=== PATIENT | male | born 1945 | race Caucasian/White ===

== ENCOUNTER 2018-12-02 15:49 | Inpatient (IN) ==
[2018-12-02] MEDS ORDERED: NS 1,000 ML IV ONE (16:03)
--- NOTE | 2018-12-02 16:30 | Diag Imaging Result Doc PS360 ---
EXAM: CT HEAD W/O CONTRAST 12/02/2018 HISTORY: confusion TECHNIQUE: This exam was performed using automated exposure control, adjustment of mA or kV according to patient size, and/or use of iterative reconstruction technique. COMMENT: There is no evidence of mass effect, bleed, or abnormal extra-axial fluid collection. There are calcifications in the internal carotid and vertebral arteries bilaterally. There are no previous studies available for comparison. The calvarium is intact. The paranasal sinuses are clear as seen. IMPRESSION: No evidence of acute intracranial disease. Electronically signed by Chris Leon 12/02/2018 4:28 PM
--- NOTE | 2018-12-02 16:41 | Diag Imaging Result Doc PS360 ---
EXAM: HUMERUS-LEFT 12/02/2018 HISTORY: left arm pain TECHNIQUE: Left humerus two views COMMENT: There is a comminuted fracture of the neck of the humerus. There is no evidence of dislocation. IMPRESSION: Fracture proximal humerus. Electronically signed by Chris Leon 12/02/2018 4:39 PM
[2018-12-02] MEDS ORDERED: SODIUM CHLORIDE 0.9% INJ PRN (17:37)
[2018-12-02] MEDS ORDERED: PHENERGAN IV PRN (17:37)
[2018-12-02] MEDS ORDERED: TYLENOL PO PRN (17:37)
[2018-12-02 17:57] LABS: MCH 35.5 PG (27-31); MCHC 33.3 g/dL (33-37); MCV 106.4 FL (81-99); MPV 10.6 FL (7.4-10.4); RBC 2.82 XMIL (4.7-6.1); RDW 14.5 % (11.5-14.5); WBC 7.98 X1000 (4.8-10.8)
[2018-12-02 18:10] LABS: AGAP 17; ALB/GLOB RATIO 1.5; ALBUMIN 3.9 g/dL (3.5-5.0); ALKALINE PHOSPHATASE 64 U/L (32-122); BUN 15 mg/dL (8-22); CALCIUM 9.2 mg/dL (8.8-10.2); CHLORIDE 103 mmol/L (98-107); CK TOTAL 580 U/L (24-204); COSMO 292; CREATININE 0.6 mg/dL (0.7-1.2); ESTIMATED GFR > 60; GLUCOSE 118 mg/dL (70-104); GOT 24 U/L (10-34); GPT 14 U/L (10-44); POTASSIUM 3.2 mmol/L (3.5-5.1); SODIUM 146 mmol/L (136-145); TCO2 26 mmol/L (25-35); TOTAL BILIRUBIN 1.18 mg/dL (0.20-1.00); TOTAL PROTEIN 6.5 g/dL (6.3-8.3)
[2018-12-02] MEDS: DESYREL PO PRN (20:23)
[2018-12-02] MEDS: LOVENOX SUBQ SCH (20:23)
[2018-12-02] MEDS: PRAVACHOL PO SCH (20:23)
[2018-12-02] MEDS: SODIUM BICARBONATE 8.4% 100 MEQ in D5W 1,000 ML IV SCH (20:23)
[2018-12-02] MEDS: DILAUDID IV PRN (20:29)
[2018-12-03] MEDS: DILAUDID IV PRN ×2 (04:51→19:03)
[2018-12-03 07:01] LABS: AGAP 10; BUN 15 mg/dL (8-22); CALCIUM 8.2 mg/dL (8.8-10.2); CHLORIDE 101 mmol/L (98-107); CK TOTAL 255 U/L (24-204); COSMO 289; CREATININE 0.6 mg/dL (0.7-1.2); ESTIMATED GFR > 60; GLUCOSE 162 mg/dL (70-104); POTASSIUM 2.7 mmol/L (3.5-5.1); SODIUM 143 mmol/L (136-145); TCO2 32 mmol/L (25-35)
--- NOTE | 2018-12-03 07:10 | PROGRESS NOTE ---
DATE: 12/03/2018 SUBJECTIVE: Mr. Piedra unfortunately fell and injured his left upper extremity, and presented to the emergency department. He was admitted per Dr. Martinez with presumed altered mental status, and it was noted that he had this left proximal humerus fracture as well. Most of his pain is in that left arm. I have operated on Mr. Piedra in the past for a hip fracture and for elbow fracture, and he has done fairly well from those. OBJECTIVE: Left upper extremity exam: He has tenderness to palpation of the shoulder. He is neurovascularly intact to the left upper extremity. He has good sensation to light touch to his fingers, and all of his hand intrinsics are intact. He has some swelling to the arm. RADIOGRAPHS: Several views of the left shoulder show a 3-part proximal humerus fracture with a little bit of displacement. ASSESSMENT: Left 3-part proximal humerus fracture. PLAN: I discussed with Mr. Piedra about his proximal humerus fracture. Overall, alignment still looks good, so we are going to try to let this heal in on its own. He is going to be really nonweightbearing to the left upper extremity. Once he is out of the hospital, I can follow him in clinic. cc: MD Mallory Ocampo MD
[2018-12-03] MEDS: SODIUM BICARBONATE 8.4% 100 MEQ in D5W 1,000 ML IV SCH ×2 (09:16→10:50)
[2018-12-03] MEDS: PLAVIX PO SCH (09:17)
[2018-12-03] MEDS: KLOR-CON PO SCH ×2 (09:19→21:42)
--- NOTE | 2018-12-03 10:22 | Diag Imaging Result Doc PS360 ---
EXAM: CHEST-PORTABLE HISTORY: COPD TECHNIQUE: Portable chest single view COMPARISON: 04/17/2018 FINDINGS: The lungs are well expanded except for atelectasis in the left base. The heart is not enlarged. The vessels are small there are no infiltrates. No effusion identified. IMPRESSION: Emphysema Electronically signed by Pawan Davies 12/03/2018 10:20 AM
[2018-12-03] MEDS: LOVENOX SUBQ SCH (16:48)
--- NOTE | 2018-12-03 17:16 | PROGRESS NOTE ---
DATE: 12/03/2018 SUBJECTIVE: Mr. Piedra was admitted to [facility] for evaluation of confusion and disorientation. He does have early mild cognitive impairment. CT scan of the brain demonstrated chronic white matter changes. There have been no signs of infection to this point in time. He had a normal white count. Urinalysis was clear. His chest x-ray was clear. We rehydrated him with normal saline over night and he is CPK has improved greatly with alkalinization of the urine. Pain is well controlled with IV Dilaudid. OBJECTIVE: Vital signs: He is afebrile. Vital signs are stable. CV: Regular rate and rhythm. Lungs: Clear. Abdomen: Soft, nontender, with active bowel sounds. Neurologic: He is much more awake and interactive today. He is oriented to name and place. He still has bouts of confusion. ASSESSMENT AND PLAN: 1. Metabolic encephalopathy. He does have underlying mild cognitive impairment and stopped taking Aricept. There does not appear to be any obvious electrolyte abnormalities such as hyponatremia or evidence of infection. When he was found at home he had soiled his pants and was confused and discombobulated. I am going to arrange for an EEG to screen for subclinical seizures. 2. Hypokalemia. I will give him KCl 40 mEq p.o. b.i.d. and recheck a BMP in the morning. 3. Rhabdomyolysis. I will continue to alkalinize the urine and recheck CK in the morning. 4. Proximal left humeral fracture. Dr. Knight has seen him in consultation. He is not felt to be a surgical candidate. We will treat him conservatively. He has had frequent falls and has had difficulty moving around the house. Potentially he would benefit from rehab. We will consult transition social worker to arrange for a referral to rehab at [facility] as well as an occupational therapy consult. cc: Mallory Mratinez MD
[2018-12-03] MEDS: PRAVACHOL PO SCH (21:42)
[2018-12-03] MEDS: DESYREL PO PRN (21:42)
[2018-12-04] MEDS: DILAUDID IV PRN (04:15)
[2018-12-04 06:46] LABS: AGAP 9; BUN 13 mg/dL (8-22); CALCIUM 7.8 mg/dL (8.8-10.2); CHLORIDE 101 mmol/L (98-107); CK TOTAL 99 U/L (24-204); COSMO 286; CREATININE 0.6 mg/dL (0.7-1.2); ESTIMATED GFR > 60; GLUCOSE 112 mg/dL (70-104); POTASSIUM 2.6 mmol/L (3.5-5.1); SODIUM 143 mmol/L (136-145); TCO2 33 mmol/L (25-35)
[2018-12-04] MEDS: SODIUM BICARBONATE 8.4% 100 MEQ in D5W 1,000 ML IV SCH ×2 (09:08→18:40)
--- NOTE | 2018-12-04 09:13 | EEG REPORT ---
DATE: 12/03/2018 REFERRING PHYSICIAN: Mallory Martinez MD HYDROCRANE OPERATOR: Selma Vivar. BACKGROUND INFORMATION AND TECHNIQUE: This is a digitally recorded routine EEG with video HISTORY: 73-year-old male patient admitted with a fall and altered mental status. He was confused on the scene. EEG is ordered to detect evidence of seizures. MEDICATIONS: Include p.r.n. Dilaudid and Desyrel. EEG FINDINGS: This is a technically limited routine EEG due to diffuse myogenic artifact necessitating heavy filtering. A posteriorly dominant alpha rhythm is not seen. The background at maximal alertness consists of theta range slowing with intermixed faster frequencies. No definite persistent focal slowing. No epileptiform discharges. No seizures. Hyperventilation is not performed. Photic stimulation does not alter the record. The patient becomes drowsy briefly, but stage II sleep is not seen. EKG demonstrates mostly regular intervals with possible PVCs. IMPRESSION AND CLINICAL CORRELATION: Abnormal, technically limited, routine EEG due to mild generalized slowing suggestive of a mild nonspecific encephalopathy. No epileptiform discharges or seizures seen on the current study. This does not rule out an underlying seizure disorder. Clinical correlation is recommended. cc: MD Mallory Hector MD [facility]
[2018-12-04] MEDS: KLOR-CON PO SCH ×2 (09:14→20:45)
[2018-12-04] MEDS: PLAVIX PO SCH (09:14)
[2018-12-04] MEDS: MAGNESIUM SULFATE 2 GM/S.W.I. 2 GM/50 ML IVPB IV ONE ×4 (16:10→16:39)
[2018-12-04] MEDS: LOVENOX SUBQ SCH (16:41)
--- NOTE | 2018-12-04 17:40 | PROGRESS NOTE ---
DATE: 12/04/2018 SUBJECTIVE: Mr. Piedra was admitted to [facility] with a metabolic encephalopathy. He seems much more alert and interactive. He is awake and easily arousable. He is oriented to name and place. He still believes that it is 1919. He answers questions appropriately and carries on an appropriate conversation. Chest x-ray, urine culture, blood work demonstrate no significant abnormalities other than a low magnesium and serum potassium. EEG demonstrated gross slowing. A CT scan of the brain demonstrated no acute stroke and chronic white matter changes. OBJECTIVE: Vital signs: Temperature 98.1 degrees, pulse 92, BP 128/63, respiratory rate 18. CV: Regular rate and rhythm. Lungs: Clear. Abdomen: Soft, nontender, with active bowel sounds. ASSESSMENT AND PLAN: 1. Proximal humeral fracture. He has seen Dr. Knight in consultation. We will continue him in a shoulder immobilizer at this point. The break is not displaced and is felt it will heal over time. 2. Metabolic encephalopathy. The etiology is unclear. He has not had any evidence of seizures on the EEG. There is no evidence of infection. His initial CT scan of the brain was unremarkable. He did have some rhabdomyolysis and he has been on D5W with bicarb. I will recheck a CPK in the morning. I will most likely arrange for an MRI of the brain just to make sure that there was no stroke. 3. Hypomagnesemia. I will give magnesium oxide 2 g IV over 4 hours. 4. Hypokalemia. I will give KCl 40 mEq IV over 4 hours. 5. General debility. We have placed in a consult to [facility] to see if he would benefit from short-term rehab. cc: Mallory Martinez MD
[2018-12-04] MEDS: PRAVACHOL PO SCH (20:45)
[2018-12-05] MEDS: DILAUDID IV PRN ×3 (00:25→22:03)
[2018-12-05 07:51] LABS: AGAP 6; BUN 10 mg/dL (8-22); CALCIUM 7.9 mg/dL (8.8-10.2); CHLORIDE 101 mmol/L (98-107); COSMO 279; CREATININE 0.5 mg/dL (0.7-1.2); ESTIMATED GFR > 60; GLUCOSE 100 mg/dL (70-104); SODIUM 140 mmol/L (136-145); TCO2 33 mmol/L (25-35)
[2018-12-05] MEDS: PLAVIX PO SCH (08:32)
[2018-12-05] MEDS: KLOR-CON PO SCH ×2 (08:32→21:55)
[2018-12-05] MEDS: SODIUM BICARBONATE 8.4% 100 MEQ in D5W 1,000 ML IV SCH (11:37)
--- NOTE | 2018-12-05 13:37 | PROGRESS NOTE ---
DATE: 12/05/2018 SUBJECTIVE: Mr. Piedra has a history of proximal humeral fracture on the left. His pain is generally well controlled. He had been having increasing swelling in that arm. Noninvasive venous studies demonstrated no acute deep venous thrombosis of the left upper extremity. OBJECTIVE: He is awake and easily arousable. He is oriented to name and place. He carries on a conversation. He is agreeable to undergoing rehab. Blood pressure is stable. He is afebrile. Vital signs are stable.CV: Regular rate and rhythm. Lungs: Clear. Abdomen: Soft and nontender with active bowel sounds. ASSESSMENT AND PLAN: 1. Metabolic encephalopathy, the etiology of his encephalopathy remains unclear. CT scan of the brain was unremarkable. An EEG demonstrated no seizure activity. There was no evidence of electrolyte abnormalities. I have to wonder if he sustained a concussion when he fell and hit his head. 2. Rhabdomyolysis. His rhabdomyolysis has resolved. He is off D5W with bicarb. 3. Hypokalemia. We will continue supplemental potassium and recheck a BMP in the morning. 4. We will continue physical therapy. Occupational therapy is scheduled to see him. I have spoken to Vanessa from [facility] and she anticipates that [facility] will be able to accept him. We hope to proceed with transferred to [facility] in the morning if they were able to confirm acceptance with his insurance company. cc: Mallory Martinez MD
[2018-12-05] MEDS: LOVENOX SUBQ SCH (17:44)
[2018-12-05] MEDS: PRAVACHOL PO SCH (21:55)
[2018-12-06 07:27] VITALS: BP 137/70
[2018-12-06] MEDS ORDERED: NORCO-5 PO PRN (08:40)
[2018-12-06] MEDS ORDERED: RAZADYNE PO SCH (09:00)
--- NOTE | 2018-12-06 09:19 | HISTORY AND PHYSICAL ---
CHIEF COMPLAINT: Confusion. HISTORY OF PRESENT ILLNESS: Mr. Damien Piedra is a 73-year-old gentleman with a history of a previous embolic CVA, mixed hyperlipidemia, and mild cognitive impairment who is well known to me. His family had been unable to get in contact with him for a period of greater than 24 hours. They found him lying on the floor of his kitchen. He was confused, disoriented and was not able to answer their questions appropriately. They noted that he had soiled his clothes and had sustained small cuts to his face. In the ER, he was confused and disoriented. He rambled on about trying to walk his dogs when he only has 1 dog. He had no recollection of the events which had transpired at home. His initial CT scan of the brain demonstrated chronic white matter changes. No acute stroke was noted. The family was unaware of any episodes of fever, chills, nausea or vomiting. He has had no seizure activity in the past. He was also with complaint of left shoulder pain and x-ray of the left shoulder demonstrated a comminuted fracture of the neck of the humerus. There was no evidence of dislocation. PAST MEDICAL HISTORY: As above. PAST SURGICAL HISTORY: Left total hip. Excision of a pilonidal cyst. ALLERGIES: No known drug allergies. FAMILY HISTORY: His father at age 94, he had prostate and bladder cancer. His mother had hypertension and Alzheimer's dementia. She at the age of 99. One brother at age 69 from complications of leukemia and ischemic heart disease. SOCIAL HISTORY: He does consume alcoholic beverages. He is a . MEDICATIONS: 1. Pravastatin 20 mg at bedtime. 2. Plavix 75 mg daily. REVIEW OF SYSTEMS: Constitutional: He denies any recent weight gain or weight loss. HEENT: He wears glasses. Cardiovascular: No chest pain, palpitations, or anginal equivalents. Pulmonary: No shortness of breath, PND, orthopnea. Gastrointestinal: No reflux, dysphagia, melena, hematochezia, change in bowel habits, or rectal bleeding. Endocrine: No polyuria, no polydipsia. No cold or heat intolerance. Skin: No easy bruisability. Genitourinary: No leakage of urine with coughing or laughing. Skin: No easy bruisability. Neurologic: No migraines or seizures. PHYSICAL EXAMINATION: GENERAL: This is an elderly, frail, 73-year-old gentleman, he is sitting up in a chair. He is oriented to name only. HEENT: Fundi with arteriolar wall thickening. Pupils equal, round, reactive to light. Extraocular eye movements intact. TMs without bullae. NECK: Supple. No masses, JVD or bruits. CARDIOVASCULAR: Regular rate and rhythm. LUNGS: Clear. ABDOMEN: Soft, nontender, with active bowel sounds. EXTREMITIES: Without edema. SKIN: No palpable purpura. GENITOURINARY: Normal male genitalia. RECTAL: Deferred. NEUROLOGIC: He is sitting up in a chair. He is awake but somewhat sedated. He is oriented to name only. He moves his right upper and lower extremities bilaterally. Cranial nerves II through XII intact grossly. ASSESSMENT AND PLAN: 1. Metabolic encephalopathy. The etiology of his encephalopathy is unclear. He does not have any fever, chills or leukocytosis. CT scan shows chronic white matter changes. I will check a urine culture. The only significant electrolyte abnormalities are an elevated CPK as well as a low potassium. Certainly there is the possibility of subclinical seizures or a concussion. We will monitor him closely. 2. Rhabdomyolysis. He has elevated CPK. He was found down. We do not know how long he was down. I will begin D5W with 2 amps of sodium bicarb added to each bag of IVS and follow his CPK. 3. Hypokalemia. We will replete his potassium. 4. Proximal humeral fracture on the left. We will consult Dr. Knight in consultation for treatment management. I am not sure whether he is a surgical candidate or whether, since the bones appeared to be properly aligned, that it will heal on its own and he will need to wear an immobilizer. 5. Given the patient's clinical presentation and comorbid conditions, I anticipate that admission to the hospital is both reasonable and necessary. I anticipate that he will be in the hospital for at least 2 midnights and I will therefore place him in inpatient status. 6. We will begin Lovenox 40 mg subcutaneously daily for deep venous thrombosis prophylaxis. cc: Mallory Martinez MD
[2018-12-06] MEDS: PLAVIX PO SCH (09:56)
[2018-12-06] MEDS: KLOR-CON PO SCH (09:56)
--- NOTE | 2018-12-06 10:00 | DISCHARGE SUMMARY ---
ADMISSION DATE: 12/02/2018 DISCHARGE DATE: 12/06/2018 DISCHARGE DIAGNOSES: 1. Metabolic encephalopathy. 2. Suspected concussion (date of injury 12/02/2018). 3. Mild cognitive impairment. 4. Proximal humeral fracture of the left humerus. 5. Rhabdomyolysis. 6. Hypomagnesemia. 7. Hypokalemia. 8. Previous embolic cerebrovascular accident. 9. Mixed hyperlipidemia. DISCHARGE INSTRUCTIONS: 1. The patient will be transferred via ambulance to [facility] in [place], [place], in order to undergo subacute rehab. 2. Activity as tolerated. 3. Healthy heart diet DISCHARGE MEDICATIONS: 1. Plavix 75 mg daily. 2. Pravastatin 40 mg at bedtime. 3. Razadyne 4 mg b.i.d. 4. [place] 5 one q. 6 hours p.r.n. pain. 5. Klor-Con 40 mEq b.i.d. DISCHARGE PHYSICAL EXAMINATION: General: This is a well-developed, well-nourished, 73-year-old gentleman in no apparent distress. Vital Signs: He is afebrile. Vital signs are stable. CV: Regular rate and rhythm. Lungs: Clear. Abdomen: Soft, nontender, with active bowel sounds. HOSPITAL COURSE: Mr. Piedra was admitted to [facility] for evaluation of encephalopathy. He was confused and disoriented. CT scan of the brain demonstrated chronic white matter changes. There was no evidence of hemorrhage or new stroke. An EEG was negative for seizure activity or subclinical seizure. Urine cultures, chest x-ray and white counts remained normal. There was no evidence of infection. I suspect that he sustained a concussion which caused the periodic confusion over the course of his hospitalization, and he returned to his baseline neurologically. He had apparently been down in the house for nearly 24 hours. His CPK was elevated. He had muscle weakness and muscle pain in his legs. We felt he had mild rhabdomyolysis I alkalinized the urine and his CPKs normalized. He was noted to have hypokalemia on admission. We initially gave him additional potassium without significant improvement. We checked a magnesium level which was low and repleted his magnesium. He has been taking Klor-Con 40 mEq b.i.d. and a BMP is pending this morning. He has a history of mild cognitive impairment. He does have some baseline confusion and disorientation. He had stopped taking Aricept. I began Razadyne 4 mg b.i.d. He fell and sustained a left humeral fracture. Dr. Knight saw him in consultation. The bones were aligned. He did not feel him to be a surgical candidate. We will place him in a shoulder immobilizer and will need to repeat films in 1 week. Having reached maximum hospital benefit, the patient was discharged in stable condition. cc: Mallory Martinez MD
[2018-12-06 10:30] LABS: AGAP 10; BUN 9 mg/dL (8-22); CALCIUM 8.5 mg/dL (8.8-10.2); CHLORIDE 100 mmol/L (98-107); COSMO 281; CREATININE 0.6 mg/dL (0.7-1.2); ESTIMATED GFR > 60; GLUCOSE 113 mg/dL (70-104); SODIUM 141 mmol/L (136-145); TCO2 31 mmol/L (25-35)
--- NOTE | 2018-12-06 15:21 | Extremity Venous Study ---
PROCEDURE NAME: Venous U/S Left Arm - 12/05/2018 PROCEDURE: Left upper extremity venous ultrasound. PICKLE CUTTER: Dr. Cano. REQUESTING PHYSICIAN: Dr. Calle. INDICATIONS: Humerus fracture with edema. FINDINGS: Deep superficial veins of the left upper extremity and neck were visualized. All vessels appear compressible with forward flow. No evidence of intraluminal thrombus. SUMMARY: No deep or superficial venous thrombosis seen in the left upper extremity. cc: MD Mallory Alfred MD
== END 2018-12-06 15:16 | DRG 89 ==
LOC: SUPCPDRO → ED 15:49 → 3N 17:02
PROVIDERS: ADMIT Internal Medicine; ATTEND Internal Medicine
CPT/HCPCS: 70450; 71010; 71045; 73030; 73060; 80048; 80053; 80307; 80320; 82055; 82550; 82948; 83735; 85027; 87088; 93971; 94761; 95816; 97116; 97162; 97166; 97530; 97535; 99285; A9270; G0480; G6040; J1170; J1650; J3475; J7070; XXXXX